=== PATIENT | male | born 1985 | race African-American/Black ===

== ENCOUNTER 2023-05-08 09:19 | Emergency (ER) | payer MEDICAID ==
[~2023-05-08] VITALS: Ht 172.7 cm; Wt 102.5 kg
[~2023-05-08 09:19] MED LIST: OLAN5TAB74 PO
[2023-05-08 09:27] VITALS: TEMP 98.8; O2SAT 99
[2023-05-08] MEDS ORDERED: haldol (09:27)
[2023-05-08] MEDS: KETOROLAC 60MG/2ML VIAL IM ONE (12:45)
[2023-05-08 14:50] VITALS: BP 126/53; PULSE 80; RESP 18
== END 2023-05-08 14:52 | disposition home or self-care (01) ==
LOC: ER 09:19
DX: S30.0XXA Contusion of lower back and pelvis, initial encounter (principal); M46.96 Unspecified inflammatory spondylopathy, lumbar region; F20.9 Schizophrenia, unspecified; X58.XXXA Exposure to other specified factors, initial encounter; Y93.89 Activity, other specified; Y92.89 Other specified places as the place of occurrence of the external cause; Y99.8 Other external cause status
CPT/HCPCS: 72100; 96372; 99283; J1885; Z7610